=== PATIENT | female | born 1985 | race Caucasian/White ===

== ENCOUNTER 2020-08-22 12:51 | Emergency (ER) | payer OTHER ==
[~2020-08-22] VITALS: Ht 165.1 cm; Wt 99.5 kg
[2020-08-22 13:09] VITALS: BP 128/78
[2020-08-22 13:59] LABS: BASOPHILS % (AUTO) 0 % (0-1); EOSINOPHILS % (AUTO) 1 % (1-7); LYMPHOCYTES % (AUTO) 17 % (22-44); MEAN CORPUSCULAR HGB CONC 34.1 g/dL (32.4-35.8); MEAN PLATELET VOLUME 8.8 fL (7.4-10.4); MONOCYTES % (AUTO) 6 % (2-9); NEUTROPHILS % (AUTO) 76 % (42-75); PLATELET COUNT 293 x10^3/uL (130-400); RED BLOOD COUNT 4.67 x10^6/uL (3.82-5.3); RED CELL DISTRIBUTION WIDTH 12.5 % (9.6-15.2)
[2020-08-22 14:03] LABS: MD NO
--- NOTE | 2020-08-22 14:24 | NUR ---
ULTRASOUND AT BEDSIDE.
== END 2020-08-22 15:15 | disposition home or self-care (01) ==
LOC: ED 15:09
DX: R10.11 Right upper quadrant pain (principal); R11.0 Nausea
CPT/HCPCS: 36415; 76700; 84703; 85025; 99284